=== PATIENT | male | born 1990 | race Caucasian/White ===

== ENCOUNTER 2024-10-10 07:45 | Day surgery (SDC) | payer OTHER ==
[~2024-10-10] VITALS: Ht 177.8 cm; Wt 83.9 kg
[~2024-10-10 07:45] MED LIST: CHEL50TA2 PO; CHOL50003 PO; LIDOCAINE 2% 100MG/5ML SDV (FOR ANES.) As Ordered ONE; RA N1TAB PO; VALA1TAB5 PO; VITA100017 PO; propofoL 200 MG/20 ML VIAL As Ordered ONE
[2024-10-10 09:40] VITALS: TEMP 98
[2024-10-10 10:00] VITALS: BP 117/64; O2SAT 98
== END 2024-10-10 10:19 | disposition home or self-care (01) ==
LOC: M OPP 07:45
PROVIDERS: ATTEND Internal Medicine Gastroenterology
DX: Z86.0100 Personal history of colon polyps, unspecified (principal); Z80.0 Family history of malignant neoplasm of digestive organs; F17.220 Nicotine dependence, chewing tobacco, uncomplicated; Z79.899 Other long term (current) drug therapy